=== PATIENT | male | born 1960 | race Caucasian/White ===

== ENCOUNTER → 2016-05-11 | Outpatient (CLI) | payer BC ==
--- NOTE | 2016-05-12 08:50 | XR ---
Left shoulder HISTORY: Left shoulder injury and pain 1 month ago 3 views of the left shoulder No comparisons Left lung apex as visualized is normal. Hypertrophic change present at the acromioclavicular joint. B one mineralization and alignment are maintained. IMPRESSION: No fracture or dislocation. Consider shoulder MRI
== END | disposition home or self-care (01) ==
LOC: RADXRYALE 16:39
PROVIDERS: ATTEND Family Medicine
DX: S49.92XA Unspecified injury of left shoulder and upper arm, initial encounter (principal)

== ENCOUNTER → 2016-08-12 | Outpatient (CLI) | payer BC ==
--- NOTE | 2016-08-12 23:11 | MR ---
EXAMINATION TYPE: MR knee RT wo con DATE OF EXAM: 08/12/2016 9:12 PM COMPARISON: Right knee x-ray February 18, 2016. HISTORY: Knee and Shoulder Pain x4 - 6 months TECHNIQUE: Multiplanar, multisequence images of the knee is performed without IV contrast. FINDINGS: MEDIAL MENISCUS: Anterior horn is intact without tear. Oblique increased signal posterior horn of me dial meniscus on sagittal image 5 and 6 is present, appears to extend to inferior articular surface m ore centrally, findings are consistent with full-thickness meniscal tear. LATERAL MENISCUS: Posterior horn is grossly intact without tear. Some punctate increased signal anter ior horn of lateral meniscus on sagittal image 22 is present. CRUCIATE LIGAMENTS: The anterior and posterior cruciate ligaments are intact. Increased signal near t ibial attachment is seen. COLLATERAL LIGAMENTS: The medial collateral ligament and lateral collateral ligament complex are inta ct. There is medial bulging of the medial collateral ligament complex with surrounding fluid noted. EXTENSOR MECHANISM: Visualized quadriceps and patellar tendons are intact. EFFUSION: There is fairly moderate suprapatellar joint effusion. POPLITEAL CYST: There are small to moderate-sized popliteal/atwood cyst measuring 4.6 cm on long axis on sagittal image 7. TRICOMPARTMENT SPACES: There is fairly moderate joint space loss medial tibiofemoral compartment. Mod erate to severe joint space loss patellofemoral compartment is seen with mild spurring. Tibial condyl ar spurring is present. CARTILAGE: There is marked thinning of articular cartilage medial tibiofemoral compartment. There is some thinning of articular cartilage along posterior patellar pole. No full-thickness chondromalacia patella is present. BONE MARROW SIGNAL: There is heterogeneous increased T2 signal medial tibiofemoral compartment most p ronounced centrally at level of full-thickness cartilaginous loss. There is a prominent diminished T1 signal are noted. No ossific fragmentation is clearly present. OTHER: There is additional fluid collection posterior lateral knee extending from joint space inferio rly near the fibular head possible ganglion cyst. IMPRESSION: 1. Oblique full-thickness tear posterior horn of medial meniscus. 2. Myxoid degeneration ACL. 3. Background of moderate to borderline severe degenerative changes most prominent in patellofemoral and medial tibiofemoral compartments. Medial tibiofemoral compartment shows full-thickness cartilagin ous loss and reactive osseous changes. 4. Moderate-sized suprapatellar joint effusion. 5. Small to moderate-sized popliteal cyst. 6. Intrasubstance tearing anterior horn of lateral meniscus. 7. Moderate MCL sprain.
--- NOTE | 2016-08-12 23:16 | MR ---
EXAMINATION TYPE: MR shoulder LT wo con DATE OF EXAM: 08/12/2016 9:11 PM COMPARISON: Left shoulder x-ray May 11, 2016. HISTORY: Left shoulder pain for 4 months with difficulty raising overhead. TECHNIQUE: Multiplanar, multisequence imaging of the left shoulder is performed without contrast. FINDINGS: Rotator Cuff: There is full-thickness retracted tear of supraspinatus tendon retracted to level of di stal clavicle seen best on paracoronal image 11 roughly 3.6 cm from humeral head attachment. There is at least high-grade partial but suspected full-thickness retracted tear of the infraspinatus tendon as no distinct fibers are seen present past parasagittal image 8 where minimal fibers remain present. Teres minor tendon is intact. There is mild atrophy of supraspinatus and infraspinatus muscl e bulk with muscular replacement. Some edema within the muscular bulk is present on paracoronal image 15. Subscapularis tendon is intact. Acromioclavicular Joint: There is joint space loss with mild irregular spurring at acromioclavicular joint. Distal acromion morphology is unremarkable. Glenohumeral Joint: High riding humeral head is present. There is large glenohumeral joint effusion. Joint space loss is noted. Labrum: The labrum appears grossly intact given limitation of non-arthrogram study. Biceps Tendon: The long head of biceps is in normal location within bicipital groove. Surrounding flu id is believed related to joint effusion. Bone marrow signal: No focal abnormal marrow signal is appreciated. Other: No additional significant abnormality is appreciated. IMPRESSION: 1. Full-thickness retracted tears of supraspinatus and also likely of infraspinatus tendons likely grimm bacute in age which would correlate with patient's history of trauma 4 months ago. There is high ridi ng humeral head with mild muscular atrophy. Some intramuscular edema is noted. 2. Large glenohumeral joint effusion.
== END | disposition home or self-care (01) ==
LOC: RADMRIMAIN 19:56
PROVIDERS: ATTEND Family Medicine
DX: M75.122 Complete rotator cuff tear or rupture of left shoulder, not specified as traumatic (principal); M62.512 Muscle wasting and atrophy, not elsewhere classified, left shoulder; S83.411A Sprain of medial collateral ligament of right knee, initial encounter; S83.281A Other tear of lateral meniscus, current injury, right knee, initial encounter; S83.241A Other tear of medial meniscus, current injury, right knee, initial encounter; M71.21 Synovial cyst of popliteal space [Baker], right knee; M94.8X6 Other specified disorders of cartilage, lower leg; M25.861 Other specified joint disorders, right knee

== ENCOUNTER → 2016-09-21 | Outpatient (CLI) | payer BC ==
--- NOTE | 2016-09-22 13:14 | XR ---
EXAMINATION TYPE: XR chest 2V DATE OF EXAM: 09/21/2016 COMPARISON: NONE HISTORY: Preop, smoker TECHNIQUE: Frontal and lateral views of the chest are obtained. FINDINGS: Lung volumes are low. There is bronchial wall thickening suspected. No pneumonia, pneumoth orax, or pleural effusion. Patient is rotated. Accounting for technique. Cardiomediastinal silhouette , pulmonary vascularity and katie within normal limits. IMPRESSION: Correlate for bronchitis.
== END | disposition home or self-care (01) ==
LOC: RADXRYALE 15:47
PROVIDERS: ATTEND Physician Assistant Medical
DX: Z01.818 Encounter for other preprocedural examination (principal); F17.211 Nicotine dependence, cigarettes, in remission
CPT/HCPCS: 71020

== ENCOUNTER → 2016-09-26 | Outpatient (CLI) | payer BC ==
[2016-09-26 16:49] LABS: Basophils # (A) 0.1 k/uL (0-0.2); Basophils % (A) 1 %; CH 32.6; CHCM 33.5; Eosinophils # (A) 0.2 k/uL (0-0.7); Eosinophils % (A) 3 %; HCT 43.8 % (39.0-53.0); HDW 2.12; HGB 14.6 gm/dL (13.0-17.5); Luc # (Auto) 0.25; Luc % (Auto) 3; Lymphocytes % (A) 26 %; MCH 32.5 pg (25.0-35.0); MCHC 33.3 g/dL (31.0-37.0); MCV 97.6 fL (80.0-100.0); Mean Platelet Volume 7.3; Monocytes # (A) 0.7 k/uL (0-1.0); Monocytes % (A) 9 %; Neutrophils # (A) 4.5 k/uL (1.3-7.7); Neutrophils % (A) 58 %; RBC 4.49 m/uL (4.30-5.90); RDW 13.7 % (11.5-15.5); WBC 7.7 k/uL (3.8-10.6); WBC (Perox) 7.27
[2016-09-26 17:06] LABS: ALT 42 U/L (21-72); AST 26 U/L (17-59); Alkaline Phosphatase 50 U/L (38-126); Anion Gap 10 mmol/L; Blood Urea Nitrogen 16 mg/dL (9-20); Calcium 10.2 mg/dL (8.4-10.2); Carbon Dioxide 25 mmol/L (22-30); Chloride 105 mmol/L (98-107); Glucose 87 mg/dL (74-99); Non-African American GFR(MDRD) >60 (>60 ml/min/1.73 sqM); Potassium 4.8 mmol/L (3.5-5.1); Sodium 140 mmol/L (137-145); Total Protein 7.4 g/dL (6.3-8.2)
[2016-09-29 11:56] LABS: Cotinine <2.0 ng/mL (<2.0); Nicotine <2.0 ng/mL (<2.0)
== END | disposition home or self-care (01) ==
LOC: LABWHC1 16:23
PROVIDERS: ATTEND Orthopaedic Surgery
DX: Z01.818 Encounter for other preprocedural examination (principal); M25.512 Pain in left shoulder; M75.122 Complete rotator cuff tear or rupture of left shoulder, not specified as traumatic; M25.561 Pain in right knee; M23.221 Derangement of posterior horn of medial meniscus due to old tear or injury, right knee; M75.42 Impingement syndrome of left shoulder; M19.012 Primary osteoarthritis, left shoulder; M17.11 Unilateral primary osteoarthritis, right knee; M23.8X1 Other internal derangements of right knee; F17.211 Nicotine dependence, cigarettes, in remission
CPT/HCPCS: 36415; 80053; 80323; 85025

== ENCOUNTER → 2018-08-02 | Outpatient (CLI) | payer BC ==
--- NOTE | 2018-08-03 08:44 | XR ---
EXAM TYPE: LUMBAR SPINE X RAY SERIES COMPARISON: NONE HISTORY: Pain TECHNIQUE: 4 views are submitted. FINDINGS: Alignment is anatomic. The pedicles are intact. The transverse processes are intact. There is no s pondylolysis or spondylolisthesis. Hypertrophic spurring and multilevel degenerative disc disease no meryl with severe changes seen. There is facet arthropathy. Vascular calcifications are noted. IMPRESSION: 1. Multilevel severe degenerative disc disease.
--- NOTE | 2018-08-03 08:49 | XR ---
EXAMINATION TYPE: XR chest 2V DATE OF EXAM: 08/02/2018 COMPARISON: 09/21/2016 TECHNIQUE: PA and lateral views submitted. HISTORY: Cough FINDINGS: The lungs are clear and there is no pneumothorax, pleural effusion, or focal pneumonia. No overt fa ilure. Hypertrophic and degenerative change of the spine. Hyperinflation suggests COPD. IMPRESSION: 1. No acute process.
== END ==
LOC: RADXRYALE 16:10
PROVIDERS: ATTEND Internal Medicine
DX: M51.16 Intervertebral disc disorders with radiculopathy, lumbar region (principal); R05 Cough
CPT/HCPCS: 71046; 72110

== ENCOUNTER → 2019-05-31 | Outpatient (CLI) | payer BC ==
--- NOTE | 2019-06-02 18:56 | MR ---
EXAMINATION TYPE: MR lumbar spine wo con DATE OF EXAM: 05/31/2019 COMPARISON: Plain film 08/02/2018 HISTORY: Jorge hip and thigh pain TECHNIQUE: Multiplanar, multisequence images of the lumbar spine were acquired. L1-L2: Posterior extension endplate disc complex causes mild anterior mass effect on the thecal sac. No significant central stenosis or foraminal encroachment. L2-L3: Posterior extension endplate disc complex causes mild anterior mass effect on the thecal sac. No significant foraminal encroachment or central stenosis. L3-L4: Posterior broad-based disc bulge causes anterior mass effect on the thecal sac. Facet arthropa thy with hypertrophy ligamentum flavum is noted. No significant spinal stenosis. Circumferential exte nsion endplate disc complex encroaches on the neural foramen on the left. L4-L5: There is a posterior disc herniation causing mass effect on the thecal sac, moderate central s tenosis. No evident foraminal encroachment. Minimal anterolisthesis grade 1 at L4-5. L5-S1: Posterior disc herniation a left paracentral location may contact the left S1 nerve root, ante rior thecal sac. Circumferential extension endplate disc complex encroaches on the foramina left grea ter than right. No significant spinal stenosis. Lumbar segments are intact. No paraspinal masses are identified. Conus medullaris has a normal appe arance. Lumbar vertebral bodies show preserved height. There is multilevel loss of disc height signal at intervertebral levels, vacuum phenomenon present L4-5 and L5-S1. Endplate discogenic marrow signa l changes are present. IMPRESSION: Multilevel degenerative disc disease, foraminal encroachment, facet arthropathy, disc herniation with spinal stenosis greatest at L4-5.
== END | disposition home or self-care (01) ==
LOC: RADMRIMAIN 17:41
PROVIDERS: ATTEND Orthopaedic Surgery
DX: M48.061 Spinal stenosis, lumbar region without neurogenic claudication (principal); M51.16 Intervertebral disc disorders with radiculopathy, lumbar region; M46.96 Unspecified inflammatory spondylopathy, lumbar region
CPT/HCPCS: 72148

== ENCOUNTER 2024-10-03 21:45 | Observation (INO) | payer BC ==
[2024-10-03 21:53] LABS: Glucose,Whole Blood 95 mg/dL (70-110)
[2024-10-03 22:19] LABS: Basophils # (A) 0.08 10*3/uL (0.00-0.10); Basophils % (A) 0.5 %; Eosinophils # (A) 0.31 10*3/uL (0.04-0.35); HCT 44.8 % (39.6-50.0); HGB 15.9 g/dL (13.0-17.0); Lymphocytes % (A) 11.7 %; MCH 32.4 pg (27.0-32.0); MCHC 35.5 g/dL (32.0-37.0); MCV 91.4 fL (80.0-97.0); Mean Platelet Volume 10.9 fL (9.5-12.2); Monocytes # (A) 1.42 10*3/uL (0.20-1.00); Monocytes % (A) 9.3 %; Neutrophils # (A) 11.69 10*3/uL (1.80-7.70); Neutrophils % (A) 76.2 %; Platelet Count 342 10*3/uL (140-440); RDW 13.3 % (11.5-14.5); WBC 15.34 10*3/uL (4.50-10.00)
--- NOTE | 2024-10-03 22:30 | CT ---
EXAM: CT Head Without Intravenous Contrast CLINICAL HISTORY: ITS.REASON CT Reason: Neuro deficit, acute, stroke suspected TECHNIQUE: Axial computed tomography images of the head/brain without intravenous contrast. CTDI is 48.9 mGy and DLP is 1151.8 mGy-cm. This CT exam was performed using one or more of the following dose reduction techniques: automated exposure control, adjustment of the mA and/or kV according to patient size, and/or use of iterative reconstruction technique. COMPARISON: None FINDINGS: Diagnostic image quality is reduced by motion artifact. Brain: A small ill-defined focal hypodensity in the genu/anterior limb of the left internal capsule, likely represents an old ischemic injury (series 201 image 32).. There is no acute intracranial hemorrhage, mass-effect or midline shift. The davis-white matter differentiation is maintained. Ventricles: Unremarkable. No ventriculomegaly. Bones/joints: Unremarkable. No acute fracture. Soft tissues: Unremarkable. Sinuses: Right maxillary sinus a 3.0 x 1.9 cm retention cyst. Left maxillary sinus mucosal thickening and a 2.9 x 2.0 cm retention cyst. Medially mucosal thickening of the right sphenoid sinus. No air-fluid levels. Mastoid air cells: Unremarkable as visualized. No mastoid effusion.. IMPRESSION: No conclusive acute intracranial pathology identified. If there is continued clinical concern, MRI brain is recommended. .
[2024-10-03 22:31] LABS: ALT 39 U/L (4-49); African American GFR (CKD) >90 (>60 ml/min/1.73 sqM); Alcohol <10 mg/dL; Anion Gap 11 mmol/L; Blood Urea Nitrogen 16 mg/dL (9-20); Calcium 9.8 mg/dL (8.4-10.2); Carbon Dioxide 20 mmol/L (22-30); Chloride 106 mmol/L (98-107); Creatine Kinase 229 U/L (55-170); Glucose 92 mg/dL (74-99); Non-African American GFR(CKD) >90 (>60 ml/min/1.73 sqM); Sodium 137 mmol/L (137-145); Total Bilirubin 1.4 mg/dL (0.2-1.3); Total Protein 7.7 g/dL (6.3-8.2)
[2024-10-03 22:34] LABS: AST 35 U/L (17-59); Alkaline Phosphatase 51 U/L (38-126); Potassium 4.5 mmol/L (3.5-5.1)
[2024-10-03 22:40] LABS: Prothrombin Time 10.8 sec (10.0-12.5)
[2024-10-03 22:43] LABS: Partial Thromboplastin Time 20.9 sec (22.0-30.0)
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
--- NOTE | 2024-10-03 22:57 | CT ---
EXAM: CT Angiography Head With Intravenous Contrast CLINICAL HISTORY: ITS.REASON CT Reason: Neuro deficit, acute, stroke suspected TECHNIQUE: Axial computed tomographic angiography images of the head with intravenous contrast. CTDI is 13.8 mGy and DLP is 250.6 mGy-cm. This CT exam was performed using one or more of the following dose reduction techniques: automated exposure control, adjustment of the mA and/or kV according to patient size, and/or use of iterative reconstruction technique. MIP reconstructed images were created and reviewed. COMPARISON: CT head: 10/03/2024 FINDINGS: Right internal carotid artery: No acute findings. Intracranial segment is patent with no significant stenosis. No aneurysm. Right anterior cerebral artery: No occlusion or significant stenosis. No aneurysm. Right middle cerebral artery: No occlusion or significant stenosis. No aneurysm. Right posterior cerebral artery: No occlusion or significant stenosis. No aneurysm. Right vertebral artery: Unremarkable as visualized. Left internal carotid artery: No acute findings. Intracranial segment is patent with no significant stenosis. No aneurysm. Left anterior cerebral artery: No occlusion or significant stenosis. No aneurysm. Left middle cerebral artery: No occlusion or significant stenosis. No aneurysm. Left posterior cerebral artery: . No occlusion or significant stenosis. No aneurysm. Left vertebral artery: Unremarkable as visualized. Basilar artery: No occlusion or significant stenosis. No aneurysm. IMPRESSION: CTA nikolski of [place] does not demonstrate any aneurysm, high-grade stenosis or occlusion. . EXAM: CT Angiography Neck With Intravenous Contrast CLINICAL HISTORY: ITS.REASON CT Reason: Neuro deficit, acute, stroke suspected TECHNIQUE: Routine carotid CT angiography protocol was performed with intravenous contrast. NASCET criteria using the distal ICAs for comparison were used for evaluation of stenoses. CTDI is 13.8 mGy and DLP is 250.6 mGy-cm. This CT exam was performed using one or more of the following dose reduction techniques: automated exposure control, adjustment of the mA and/or kV according to patient size, and/or use of iterative reconstruction technique. MIP reconstructed images were created and reviewed. COMPARISON: None. FINDINGS: VASCULATURE: Right common carotid artery: No occlusion or significant stenosis. No dissection. Right carotid bulb: Calcified plaques Right internal carotid artery: Extracranial proximal segment right ICA with calcified plaque, <50% stenosis. No occlusion. No dissection. Right external carotid artery: Proximally calcified atheromatous plaques. No occlusion. Right vertebral artery: No occlusion or significant stenosis. No dissection. Left common carotid artery: No occlusion or significant stenosis. No dissection. Left carotid bulb: Calcified plaques Left internal carotid artery: Proximal extracranial segment calcified atherosclerotic plaques is seen with > 50% stenosis. No occlusion. No dissection. Left external carotid artery: Unremarkable. No occlusion. Left vertebral artery: No occlusion or significant stenosis. No dissection. NECK: Bones/joints: C5-C7 moderately severe degenerative spondylosis. No acute fracture. Soft tissues: Unremarkable. Lung apices: No mass. No consolidation. CAROTID STENOSIS REFERENCE USING NASCET CRITERIA: % ICA stenosis = (1 - narrowest ICA diameter/diameter of distal cervical ICA) x 100. Mild - <50% stenosis. Moderate - 50-69% stenosis. Severe - 70-94% stenosis. Near occlusion - 95-99% stenosis. Occluded - 100% stenosis. IMPRESSION: Atheromatous calcified plaques of the bilateral carotid bulbs and proximal extracranial ICAs with 40-50% stenosis. Otherwise unremarkable CTA neck.
--- NOTE | 2024-10-03 23:44 | XR ---
EXAM: XR Chest, 2 Views CLINICAL HISTORY: ITS.REASON XR Reason: altered mental status TECHNIQUE: Frontal and lateral views of the chest. COMPARISON: X-ray chest: 08/02/2018 FINDINGS: Lungs: Underexpanded lungs. Bilateral bronchial wall thickening. There is right infrahilar focal density along the right cardiac border is seen, likely projectional in nature although a pathology is not ruled out, the need for CT chest exam to be determined clinically.. No consolidation. Pleural space: No pleural effusion. No pneumothorax. A mildly elevated left hemidiaphragm. Heart: Borderline/mild cardiomegaly. Mediastinum: Normal mediastinal contour. Bones/joints: No acute fracture.. IMPRESSION: No conclusive acute cardiopulmonary process. .
[2024-10-04] MEDS: ASPIRIN 325 MG TAB PO STA (00:41)
[2024-10-04] MEDS: ATORVASTATIN 40 MG TAB PO SCH (00:41)
[2024-10-04 06:31] LABS: Appearance,Urine Clear (Clear); Bilirubin,Urine Negative (Negative); Blood,Urine Negative (Negative); Color,Urine Colorless; Glucose,Urine (UA) Negative (Negative); Ketones,Urine Negative (Negative); Leukocyte Esterase,Urine Negative (Negative); Nitrite,Urine Negative (Negative); PH, Urine 5.5 (5.0-8.0); Protein,Urine Negative (Negative); Specific Gravity,Urine 1.044 (1.001-1.035); Urobilinogen,Urine <2.0 mg/dL (<2.0)
[2024-10-04 10:30] LABS: Chol/HDL Ratio 2.49 Ratio; LDL Cholesterol,Calculated 81.5 mg/dL (0.0-131.0); VLDL Calculation 19.58 mg/dL (5.00-40.00)
--- NOTE | 2024-10-04 11:02 | XR ---
EXAMINATION TYPE: XR orbit pre-MRI foreign body DATE OF EXAM: 10/04/2024 10:55 AM COMPARISON: None CLINICAL INDICATION: Male, 63 years old with history of metal in eye pre-MRI; [facility] TECHNIQUE: XR orbit pre-MRI foreign body views the orbits frontal, lateral and Presley. FINDINGS: Radiographic evaluation of the orbits fail to demonstrate evidence of an orbital fracture. There is n o radiopaque foreign body identified. The adjacent paranasal sinuses are well aerated an without evid ence of intra-cavitary fluid accumulation. If a radiographically occult fracture is clinically suspected, thin-section CT scan of the orbits is a more sensitive study to exclude subtle maxillofacial traumatic injuries. IMPRESSION: No radiographic evidence of radiopaque foreign body other than patient's dental work. [facility], , 10/04/2024 11:00 AM
--- NOTE | 2024-10-04 13:02 | P.HPIM ---
History of Present Illness 62-year-old male came in with complaints of temporary lapse of memory as detailed in the ER physician note patient had his memory difficulties which started yesterday evening which lasted until he came to ER and lasted shortly after he came to ER patient denied any focal weakness at this time patient denied any fever chills nausea vomiting headache. Patient denied any cough urinary symptoms patient does have leukocytosis without any evidence of infection on radiological imaging and bilateral biochemical testing. Patient's blood pressure is significantly higher when he came in yesterday which has come down to 160 systolic at this time REVIEW OF SYSTEMS: All other systems are negative except those mentioned in the HPI PHYSICAL EXAMINATION: GENERAL: The patient is alert and oriented x3, not in any acute distress. Well developed, well nourished. HEENT: Pupils are round and equally reacting to light. EOMI. No scleral icterus. No conjunctival pallor. Normocephalic, atraumatic. No pharyngeal erythema. No thyromegaly. CARDIOVASCULAR: S1 and S2 present. No murmurs, rubs, or gallops. PULMONARY: Chest is clear to auscultation, no wheezing or crackles. ABDOMEN: Soft, nontender, nondistended, normoactive bowel sounds. No palpable organomegaly. MUSCULOSKELETAL: No joint swelling or deformity. EXTREMITIES: No cyanosis, clubbing, or pedal edema. NEUROLOGICAL: Gross neurological examination did not reveal any focal deficits. SKIN: No rashes. Assessment and plan Transient global amnesia patient need to be worked up for stroke patient had a CT of the head and CT angio of the head CT angiogram of the head showed some bilateral atheromatous plaques. No other significant stenosis. Neurology will evaluate the patient -Possible essential hypertension for now we will just monitor the blood pressure without any antimedicine medications considering that patient need to be worked up for TIA/stroke - Hyperlipidemia for which patient is on statin - Continue nicotine use: Counseling will be provided DVT prophylaxis:-Early ambulation Past Medical History Past Medical History: Hyperlipidemia, Hypertension History of Any Multi-Drug Resistant Organisms: None Reported Past Surgical History: Joint Replacement Additional Past Surgical History / Comment(s): Right knee replacement Smoking Status: Current every day smoker Past Alcohol Use History: Daily Past Drug Use History: None Reported Medications and Allergies Home Medications Medication Instructions Recorded Confirmed Type Rosuvastatin Calcium 5 mg PO HS 10/04/24 10/04/24 History Allergies Allergy/AdvReac Type Severity Reaction Status Date / Time No Known Allergies Allergy Verified 10/04/24 08:28 Physical Exam Vitals: Vital Signs Temp Pulse Pulse Resp BP BP Pulse Ox 10/04/24 12:30 70 16 137/91 95 10/04/24 10:05 60 16 142/85 97 10/04/24 09:14 98.1 F 79 16 161/114 96 10/04/24 03:00 98.1 F 82 16 130/78 94 L 10/04/24 01:58 79 18 120/83 97 10/04/24 00:41 70 18 128/87 100 10/03/24 22:17 95 18 168/100 94 L 10/03/24 21:48 97.7 F 103 H 18 200/130 95 Intake and Output 10/03/24 10/04/24 10/04/24 22:59 06:59 14:59 Output Total 500 Balance -500 Output: Urine 500 Other: Weight 79.832 kg Results CBC & Chem 7: 10/03/24 21:50 10/03/24 21:50 Labs: Abnormal Lab Results - Last 24 Hours (Table) 10/03/24 10/03/24 10/03/24 Range/Units 21:50 21:50 21:50 WBC 15.34 H (4.50-10.00) 10*3/uL MCH 32.4 H (27.0-32.0) pg Neutrophils # 11.69 H (1.80-7.70) 10*3/uL Monocytes # 1.42 H (0.20-1.00) 10*3/uL APTT 20.9 L (22.0-30.0) sec Carbon Dioxide 20 L (22-30) mmol/L Total Bilirubin 1.4 H (0.2-1.3) mg/dL Creatine Kinase 229 H (55-170) U/L HDL Cholesterol (40.00-60.00) mg/dL Ur Specific [place] (1.001-1.035) 10/04/24 10/04/24 Range/Units 06:05 06:14 WBC (4.50-10.00) 10*3/uL MCH (27.0-32.0) pg Neutrophils # (1.80-7.70) 10*3/uL Monocytes # (0.20-1.00) 10*3/uL APTT (22.0-30.0) sec Carbon Dioxide (22-30) mmol/L Total Bilirubin (0.2-1.3) mg/dL Creatine Kinase (55-170) U/L HDL Cholesterol 67.90 H (40.00-60.00) mg/dL Ur Specific [place] 1.044 H (1.001-1.035)
[2024-10-04] MEDS: ASPIRIN 81 MG PO SCH (13:32)
--- NOTE | 2024-10-04 15:15 | MR ---
EXAMINATION TYPE: MR brain/cspine wo DATE OF EXAM: 10/04/2024 3:00 PM COMPARISON: 10/03/2024. CLINICAL INDICATION: Male, 63 years old with history of global amnesia, global amnesia, spasticity, w eakness of hands, spinal stenosis. TECHNIQUE: Multi planar, multi sequence imaging was performed through the brain including: T1, T2, Inversion rec overy, Diffusion weighted imaging, and gradient echo imaging. No gadolinium was given. Multi planar, multi sequence imaging was performed utilizing: T1-weighted, T2-weighted, and turbo inv ersion recovery imaging of the cervical spine. IV Contrast: mL none FINDINGS: The davis-white junctions, ventricular system, basal cisterns appear unremarkable. Scattered foci of high T2 signal intensity are seen within the periventricular white matter. Midline structures show n o abnormality. Diffusion-weighted imaging shows no evidence of restricted diffusion. The susceptibili ty weighted images do not reveal any evidence for micro-hemorrhage. The bone marrow signal is within normal limits. Paranasal sinuses and mastoid air cells: Mucosal thickening with retention cysts in the maxillary sin uses. The 37 mm on the right and 25 mm on the left. Visualized orbits: Orbital contents are intact. Alignment: The cervical vertebral bodies have preserved heights. Alignment is within normal limits gi allyn patient positioning. Bones: Scattered Modic endplate changes with osteophytes and disc space narrowing. Multilevel degener ative disc disease is noted and most pronounced at the C5-C7 vertebral levels. Cord: The spinal cord is unremarkable with regards to their signal intensity and morphology. Discs: Intervertebral disc signal is maintained. C2-C3: No significant disc pathology. The spinal canal is patent. No neural foraminal stenosis. C3-C4: No significant disc pathology. The spinal canal is patent. Bilateral facet and uncovertebral joint arthropathy are present with mild bilateral neural foraminal stenosis. C4-C5: A disc osteophyte complex is present with moderate to severe spinal canal stenosis. Bilateral facet and uncovertebral joint arthropathy are present with moderate to severe bilateral neural bon inal stenosis. C5-C6: A disc osteophyte complex is present with moderate to severe spinal canal stenosis. Bilateral facet and uncovertebral joint arthropathy are present with moderate to severe bilateral neural bon inal stenosis. C6-C7: No significant disc pathology. The spinal canal is patent. No neural foraminal stenosis. C7-T1: No significant disc pathology. The spinal canal is patent. No neural foraminal stenosis. Other: None. IMPRESSION: 1. Moderate to severe spinal canal stenosis at C5 or C5 and C5-C6 with moderate to severe bilateral neural foraminal stenosis at these levels. 2. No evidence of intracranial mass or acute/subacute infarct. 3. Nonspecific white matter changes, likely secondary to small vessel ischemic disease. [facility], , 10/04/2024 3:12 PM
--- NOTE | 2024-10-04 16:04 | P.CNNES ---
History of Present Illness Consult date: 10/04/24 Requesting physician: Vannessa Bradford Reason for Consult: global amnesia History of Present Illness: Patient is a 63-year-old male, who was brought to the hospital by ambulance at 9:45 PM last night for acute onset of amnesia. Patient states that he just got a new motorcycle. He wanted to park the motorcycle in the garage. Between driveway to the garage, there is an 4 inch lip. He remembers that he lifted the front of the motorcycle to bring it over to the garage, but it was too heavy. It started tipping over. He tried to hold it, but it was too heavy. He let it go on the ground. He then tried multiple attempts to lift it back up and took 3 trials. At that time, his son called at around 8:20 PM that why his motorcycle was in the shed. Patient did not remember why it was there and he was disoriented. He asked if he was okay, but patient could not answer. Patient's son asked if he remembers helping him and out on his deck about couple weeks ago and patient could not remember that. He got concerned and called patient's sister, who came over and that the time he was not making too much sense. His also got home and they called EMS at 8:49 PM. At that time he was looking around, confused, could not remember to even 1 minute to think to answer. There was no facial droop, slurred speech, visual disturbance, focal weakness numbness or tingling. He was complaining of some soreness in the right elbow from lifting the motorcycle. Patient's vitals at the scene was blood pressure 186/115, pulse rate 106, respiration 15 saturation 96%, blood sugar 88. Repeat blood pressure was 192/124. Vital signs on arrival was blood pressure 200/130, which came down to 168/100. Temperature is 97.7, pulse rate 103. Blood test shows WBC 15.34, hemoglobin 15.9, platelets are normal. PT PTT normal. CMP normal. CK2 29. Troponin negative. UA negative. Blood alcohol level less than 10. EKG shows sinus rhythm. CT head revealed no conclusive acute intracranial pathology identified. I personally reviewed CT head, agree with the findings. On my review, there is slight density in the left M2 segment in the sylvian fissure. Chest x-ray showed no conclusive acute cardiopulmonary disease. Patient states that the family left at around 1230 midnight and at that time he was memory was getting better. At present he feels back to baseline. Patient has history of hypertension but not being treated. No history of strokes or TIA. No history of seizures. He smokes 1 pack/day for last 40 years. Also drinks 3-4 beers every night for last 20 years. He has hyperlipi demia on Crestor 5 mg daily, otherwise no other medication. Does not take any antiplatelets. Review of Systems All pertinent positive and negative review of systems mentioned in the HPI, otherwise unremarkable. Past Medical History Past Medical History: Hyperlipidemia, Hypertension History of Any Multi-Drug Resistant Organisms: None Reported Past Surgical History: Joint Replacement Additional Past Surgical History / Comment(s): Right knee replacement Smoking Status: Current every day smoker Past Alcohol Use History: Daily Past Drug Use History: None Reported Medications and Allergies Home Medications Medication Instructions Recorded Confirmed Type Rosuvastatin Calcium 5 mg PO HS 10/04/24 10/04/24 History Allergies Allergy/AdvReac Type Severity Reaction Status Date / Time No Known Allergies Allergy Verified 10/04/24 08:28 Physical Examination - Vital Signs Vital Signs: Vital Signs Temp Pulse Pulse Resp BP BP Pulse Ox 10/04/24 12:30 70 16 137/91 95 10/04/24 10:05 60 16 142/85 97 10/04/24 09:14 98.1 F 79 16 161/114 96 10/04/24 03:00 98.1 F 82 16 130/78 94 L 10/04/24 01:58 79 18 120/83 97 10/04/24 00:41 70 18 128/87 100 10/03/24 22:17 95 18 168/100 94 L 10/03/24 21:48 97.7 F 103 H 18 200/130 95 Intake and Output 10/03/24 10/04/24 10/04/24 22:59 06:59 14:59 Output Total 500 Balance -500 Output: Urine 500 Other: Weight 79.832 kg Patient is a late middle-aged male, very pleasant, in no acute distress. Patient is alert awake oriented to time place and person. He knows it is 10/04/2024 and that it is Monday and that he is in [facility], in [facility]. Speech and language functions are normal. Patient can name and repeat very well. No aphasia or dysarthria. Attention, concentration and fund of knowledge is adequate. On cranial nerve examination, pupils are equal, round and reacting to light, visual conteh are full on confrontation, with no neglect on double simultaneous stimulation. Extraocular muscles are intact with no nystagmus. Face is symmetric, tongue protrudes to the midline. Palatal elevation and sensation normal, hearing and shoulder shrug normal, facial sensation normal. No evidence of tongue bite anayeli. On muscle strength testing, there is no pronator drift and the strength is normal in arms and legs distally and proximally, except interossei, which is 5- 4+ on the right, 5-on the left. Deep tendon reflexes are symmetric but very brisk, 2 at the biceps, 2+ brachioradialis, 3+ at the knees, 2+ ankles and plantars are upgoing bilaterally. Sensory to touch is equal with no neglect on double simultaneous stimulation. Cerebellar function showed no ataxia for [id number] testing. No dys diadochokinesia. No ataxia for [id number] testing on either side. Tone and bulk of muscles normal. Gait deferred.. On general examination, there is no carotid bruit or murmur, S1-S2 audible. Ch est is clear on consultation. Abdomen is soft nontender. No organomegaly, bowel sounds present. Peripheral pulses are present. No peripheral edema. Results - Laboratory Findings CBC and BMP: 10/03/24 21:50 10/03/24 21:50 Abnormal Lab Findings: Abnormal Labs 10/03/24 10/03/24 10/03/24 21:50 21:50 21:50 WBC 15.34 H MCH 32.4 H Neutrophils # 11.69 H Monocytes # 1.42 H APTT 20.9 L Carbon Dioxide 20 L Total Bilirubin 1.4 H Creatine Kinase 229 H HDL Cholesterol Ur Specific [place] 10/04/24 10/04/24 06:05 06:14 WBC MCH Neutrophils # Monocytes # APTT Carbon Dioxide Total Bilirubin Creatine Kinase HDL Cholesterol 67.90 H Ur Specific [place] 1.044 H Assessment and Plan Assessment: * Acute onset of amnesia, possible transient global amnesia. Rule out TIA/CVA, focal seizure. Rule out hypertensive encephalopathy. * Accelerated hypertension * Weakness of intrinsic hand muscles bilaterally, with brisk reflexes and bilateral Babinski. Suspect cervical myelopathy. Rule out cervical spinal stenosis. * Hyperlipidemia * Tobacco use * Alcohol use Plan: MRI of the brain without contrast, evaluate for acute CVA MRI of the cervical spine rule out spinal stenosis. 2-D echo with bubble study to rule out PFO CTA neck showed: Atheromatous calcified plaque of the bilateral carotid bulbs and proximal extracranial ICAs with 40 to 50% stenosis. CTA head showed no aneurysm or high-grade stenosis or occlusion. EEG, rule out epileptiform activity. Fasting a.m. lipid panel with cholesterol 169, LDL 81, HDL 67 and triglycerides 169. Continue Crestor, would suggest increasing to 10 mg daily at discharge. Hemoglobin A1c 5.7 Optimize control of blood pressure. Start aspirin regimen. Patient was given aspirin 325 mg in the ER last night. We will start aspirin 81 mg daily. Neuro checks every 4 hours. Telemetry monitoring rule out any arrhythmia Recommend complete tobacco cessation. Recommend abstaining from alcoholism. DVT prophylaxis: Patient low risk. Patient is ambulatory. Dr. Fregoso to cover neurology service over the weekend. Thank you for the consult. Time with Patient: Greater than 30
--- NOTE | 2024-10-04 16:33 | EEG ---
DATE OF SERVICE: 10/04/2024 ELECTROENCEPHALOGRAM REPORT PREAMBLE: This is a 63-year-old male with transient global amnesia. The patient does have history of hypertension and hyperlipidemia. EEG FINDINGS: This is a 21-channel digital EEG recorded with video component, utilizing 10/20 international system with referential and bipolar montages. Background consists of well developed, well regulated, high amplitude activity in 11 hertz alpha. Background is posterior dominant and reactive to eye opening and closing. Photic driving response was not seen. The patient so became drowsy with appearance of bilaterally symmetric theta frequency rhythm. Stage 2 sleep was seen during most of the study with presence of sleep spindles and vertex waves and generalized slowing. No focal or generalized epileptiform activity was seen. Hyperventilation was not done. IMPRESSION: This is a normal EEG during wakefulness, drowsiness, and stage 2 sleep. No focal, lateralized or epileptiform activity was seen. MMODL / IJN: [id number] / [id number]
[2024-10-05 07:26] VITALS: BP 126/74; PULSE 66; RESP 15; TEMP 98.1
[2024-10-05] MEDS ORDERED: amLODIPine 5 MG TAB PO SCH (09:00)
--- NOTE | 2024-10-05 10:23 | P.CNOR ---
History of Present Illness - HPI Consult date: 10/05/24 Consult reason: other (Regarding cervical spinal stenosis) History of present illness: Very pleasant 63-year-old male who is accompanied by his at bedside. Seen and examined at bedside. Patient presented to the hospital 2 days ago for global amnesia. He was found to have evidence of significant cervical spinal stenosis and we were consulted in this regard. Apparently the patient was at home and doing normal activities include motorcycle into a shed where he had to try to lift it a few times. He saw his son and was noted to have some obvious changes in his mentation and his memory and then presented to the hospital with his family. He is found to have global amnesia has been evaluated by medicine and neurology appropriately. He is having further workup into regards to possible transient global amnesia and other neurologic cause. During his workup he was found to have evidence of severe cervical spinal stenosis and we are consulted in this regard. As for pain in his upper extremities. He denies any loss of strength in his upper extremities. He denies any regular neck pain. He says he has history of spinal stenosis at his lumbar spine and has some chronic low back pain but this did not been an acute changing matter for him recently. Patient denies any specific injury with his neck. He denies any changes in his neck. Denies any changes in his fine motor skills at his upper extremities. He denies any changes to gait. Denies any clumsiness. Review of Systems Stated per HPI. He has new acute transient amnesia seems to be improving No history of neck injury specifically. No history of issues in his upper extremities. Denies any numbness tingling in his bilateral upper extremities. Denies any dexterity or fine manipulation. Denies Past Medical History Past Medical History: Hyperlipidemia, Hypertension Additional Past Medical History / Comment(s): P of lumbar spinal stenosis had some chronic low grade back pain History of Any Multi-Drug Resistant Organisms: None Reported Past Surgical History: Joint Replacement Additional Past Surgical History / Comment(s): Right knee replacement Past Anesthesia/Blood Transfusion Reactions: No Reported Reaction Smoking Status: Current every day smoker Past Alcohol Use History: Daily Past Drug Use History: None Reported Medications and Allergies Home Medications Medication Instructions Recorded Confirmed Type Rosuvastatin Calcium 5 mg PO HS 10/04/24 10/04/24 History Allergies Allergy/AdvReac Type Severity Reaction Status Date / Time No Known Allergies Allergy Verified 10/04/24 08:28 Physical Examination Osteopathic Statement: *. No significant issues noted on an osteopathic structural exam other than those noted in the History and Physical/Consult. - C Spine: dermatomal strength & reflexes bilateral Shoulder strength: flexion: 5/5 (5 out of 5 muscle strength throughout his biceps shoulders triceps wrist hands and fingers.) Shoulder strength: extension: 5/5 (No hyperreflexia. Some brisk reflexes. Negative Celine's. Extremities have 5-5 muscle strength throughout) Shoulder strength: abduction: 5/5 (Neck is nontender to palpation range of motion. Negative Spurling's) Results - Labs Labs: Abnormal Lab Results - Last 24 Hours (Table) 10/04/24 Range/Units 06:14 HDL Cholesterol 67.90 H (40.00-60.00) mg/dL H & H 10/03/24 Range/Units 21:50 Hgb 15.9 (13.0-17.0) g/dL Hct 44.8 (39.6-50.0) % Coagulation 10/03/24 Range/Units 21:50 INR 1.0 (<1.2) Result Diagrams: 10/03/24 21:50 10/03/24 21:50 - Diagnostic results Cervical MRI with/without contrast: report reviewed (Transient change at the spinal cord. No evidence of myelomalacia. Significant stenosis C5-6 C6-7), image reviewed (Imaging and report of the cervical spine is reviewed. There is significant disc degeneration particular at C5-6 C6-7. There is large disc protrusion and evidence of central and bilateral cyst at C5-6 and C6-7. There is some disc bulging with minimal stenosis at C3-4. 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 He is continue management as per medicine and neurology which I think is appropriate In terms of the patient's cervical spine he has evidence of severe central and bilateral foraminal stenosis at C5-6 C6-7. He does not appear myelopathic. He has good strength in his bilateral upper extremities without focal upper or lower extremity neurologic deficit. Symptoms at his upper or lower extremities in terms of radiculopathy or myelopathy. His spine findings are significant and will need follow-up with us. Surgical intervention or further imaging for his cervical spine during this hospitalization. I do not think that his cervical spine has any specific correlation with his recent memory issues. he is working on his amnestic issues with neurology and medicine appropriately. In the future he could be a candidate for further intervention for his cervical spine likely in the form of decompression with potential fusion. This does not have to be done urgently or emergently and he can follow-up with us at orthopedics spine as an outpatient after discharge. Discussed this at length with him and his and they seem to understand. Time with Patient: Greater than 30
--- NOTE | 2024-10-05 12:36 | P.PN ---
Subjective Progress Note Date: 10/05/24 The patient is a 63-year-old male who was seen in neurologic follow-up on October 05, 2024, in collaboration with Becky Singh, via teleneurology. The patient's chart has been reviewed. Imaging has been reviewed. The patient reportedly had an episode of memory loss. Because of reported arm pain and stiffness as well as hyperreflexia, the patient had an MRI of the brain and MRI of the cervical spine performed. MRI of the cervical spine revealed moderate to severe spinal canal stenosis as well as moderate to severe neuroforaminal stenosis. Because of these findings, orthopedic surgery was asked to evaluate the patient. Objective - Vital Signs Vital signs: Vital Signs Temp 98.1 F 10/05/24 07:00 Pulse 66 10/05/24 07:00 Resp 15 10/05/24 07:00 BP 126/74 10/05/24 07:00 Pulse Ox 98 10/05/24 07:00 FiO2 Intake & Output 10/04/24 10/05/24 10/05/24 18:59 06:59 18:59 Weight 79.832 kg Other: Voiding Method Toilet # Voids 2 - Exam General: The patient is reclining in the bed. He is well-nourished, well- developed and in no acute distress. HEENT: Head is atraumatic, normocephalic. Fundus not visualized. There is no scleral icterus. Mucous membranes are moist. Neurological examination Mental status: The patient is awake, alert and oriented x 3. His speech is clear. There is no dysarthria or aphasia. Cranial nerves: 2-12 grossly intact - Labs CBC & Chem 7: 10/03/24 21:50 10/03/24 21:50 Labs: Abnormal Lab Results - Last 24 Hours (Table) 10/04/24 Range/Units 06:14 HDL Cholesterol 67.90 H (40.00-60.00) mg/dL Assessment and Plan Assessment: * Acute onset of amnesia, possible transient global amnesia. Rule out TIA/CVA, focal seizure. Rule out hypertensive encephalopathy. * Accelerated hypertension * Weakness of intrinsic hand muscles bilaterally, with brisk reflexes and bilateral Babinski. Suspect cervical myelopathy. Rule out cervical spinal stenosis. * Hyperlipidemia * Tobacco use * Alcohol use Plan: 1. Appreciate orthopedic surgery evaluation 2. Optimize control of blood pressure. 3. Start aspirin regimen. Patient was given aspirin 325 mg in the ER last night. We will start aspirin 81 mg daily. 4. Recommend complete tobacco cessation. Recommend abstaining from alcoholism. 5. The patient is neurologically stable for discharge Time with Patient: Greater than 30 (35 minutes were spent caring for this pat ient today including, obtaining an interim history, examining the patient, reviewing imaging, chart documentation, labs, placing orders and creating this note)
--- NOTE | 2024-10-05 13:14 | CA ---
Transthoracic Echo Report Name: Isaac Sanchez Age: 63 Gender: M : 1960 Exam Date: 10/05/2024 09:06 Exam Location: [place] [facility] Ht (in): 66 Wt (lb): 176 Ordering Physician: Raghu Parker MD Attending/Referring Phys: Master Electrician Vincent Feldman RDCS Procedure CPT: Indications: TGA Cardiac Hx: TIA rule out cardiac source Technical Quality: Good Contrast 1: Agitated Saline Total Dose (mL): 10 Contrast 2: Total Dose (mL): MEASUREMENTS (Male / Female) Normal Values 2D ECHO LV Diastolic Diameter PLAX 5.4 cm 4.2 - 5.9 / 3.9 - 5.3 cm LV Systolic Diameter PLAX 3.3 cm IVS Diastolic Thickness 1.0 cm 0.6 - 1.0 / 0.6 - 0.9 cm LVPW Diastolic Thickness 1.0 cm 0.6 - 1.0 / 0.6 - 0.9 cm LV Relative Wall Thickness 0.4 RV Internal Dim ED PLAX 3.6 cm LVOT Diameter 1.9 cm LA Systolic Diameter LX 4.1 cm 3.0 - 4.0 / 2.7 - 3.8 cm LV Diastolic Volume MOD BP 122.2 cm??? 67 - 155 / 56 - 104 cm??? LV Systolic Volume MOD BP 53.9 cm??? 22 - 58 / 19 - 49 cm??? LV Ejection Fraction MOD BP 55.9 % >= 55 % LV Cardiac Index MOD BP 2561.4 cm???/min???m??? LV Diastolic Volume MOD 4C 125.9 cm??? LV Systolic Volume MOD 4C 60.0 cm??? LV Ejection Fraction MOD 4C 52.3 % LV Cardiac Index MOD 4C 2468.7 cm???/min???m??? LV Diastolic Length 4C 8.6 cm LV Systolic Length 4C 7.2 cm LV Diastolic Volume MOD 2C 116.3 cm??? LV Systolic Volume MOD 2C 47.2 cm??? LV Ejection Fraction MOD 2C 59.5 % LV Cardiac Index MOD 2C 2591.2 cm???/min???m??? LV Diastolic Length 2C 8.8 cm LV Systolic Length 2C 7.4 cm LA Volume 56.8 cm??? 18 - 58 / 22 - 52 cm??? LA Volume Index 29.2 cm???/m??? 16 - 28 cm???/m??? DOPPLER MV Area PHT 3.2 cm??? Mitral E Point Velocity 59.5 cm/s Mitral A Point Velocity 67.1 cm/s Mitral E to A Ratio 0.9 MV Deceleration Time 237.4 ms TR Peak Velocity 236.8 cm/s TR Peak Gradient 22.4 mmHg Right Atrial Pressure 5.0 mmHg Pulmonary Artery Systolic Pressu 27.4 mmHg Right Ventricular Systolic Press 27.4 mmHg FINDINGS Left Ventricle Left ventricular ejection fraction is estimated at 55-60%. No obvious regional wall motion abnormalities. Left ventricular dilatation. Left ventricular wall thickness normal. Right Ventricle Normal right ventricular size and function. Right ventricular systolic pressure within normal limits. Right Atrium Normal right atrial size. Negative agitated saline bubble study for right to left shunt. Left Atrium Mildly increased left atrial diameter. Mildly increased left atrial volume. Mitral Valve Structurally normal mitral valve. No mitral stenosis. Trace mitral regurgitation. Aortic Valve Trileaflet aortic valve. Thickened aortic valve without stenosis. Trace aortic regurgitation. Tricuspid Valve Structurally normal tricuspid valve. No tricuspid stenosis. Mild tricuspid regurgitation. Pulmonic Valve Structurally normal pulmonic valve. No pulmonic stenosis. No pulmonic regurgitation. Pericardium No pericardial effusion. Aorta Normal size aortic root and proximal ascending aorta. CONCLUSIONS Normal LV function Negative agitated saline contrast study Consider ANGELO if clinically indicated Previewed by: Dr. Alexi Ryan MD (Electronically Signed) Final Date: 05 October 2024 13:13
--- NOTE | 2024-10-05 16:06 | P.DS ---
Providers Date of admission: 10/03/24 23:46 Attending physician: Armando Carbajal Consults: 10/03/24 23:45 Consult Physician Urgent Consulting Provider: Raghu Parker Consult Reason/Comments: global amnesia Do you want consulting provider notified?: Yes 10/04/24 16:32 Consult Physician Routine Consulting Provider: Elisabeth Abbott Consult Reason/Comments: Severe cervical spinal stenosis with myelopathy Do you want consulting provider notified?: Yes Primary care physician: [facility] Course: 62-year-old male came in with complaints of temporary lapse of memory as detailed in the ER physician note patient had his memory difficulties which started yesterday evening which lasted until he came to ER and lasted shortly after he came to ER patient denied any focal weakness at this time patient denied any fever chills nausea vomiting headache. Patient denied any cough urinary symptoms patient does have leukocytosis without any evidence of infection on radiological imaging and bilateral biochemical testing. Patient's blood pressure is significantly higher when he came in yesterday which has come down to 160 systolic at this time 10/05/2024 Patient had an MRI which did not show any stroke may still have a TIA that led to his transient global amnesia. Considering physical exam findings of hyperreflexia in bilateral lower extremities neurology obtained an MRI of the cervical spine which showed cervical degenerative disc disease. Patient was evaluated by orthopedic surgery because of that reason but patient does not have any other symptoms of myelopathy. Patient does not have any pain at all because of which have not giving him any pain medications or anti-inflammatory medications patient was recommended to follow-up with Dr. Reed as an outpatient. Patient's blood pressure is within normal limits today will not require any other antihypertensive medications patient had normal physiologic elevations yesterday or may be related to his TIA. PHYSICAL EXAMINATION: GENERAL: The patient is alert and oriented x3, not in any acute distress. Well developed, well nourished. HEENT: Pupils are round and equally reacting to light. EOMI. No scleral icterus. No conjunctival pallor. Normocephalic, atraumatic. No pharyngeal erythema. No thyromegaly. CARDIOVASCULAR: S1 and S2 present. No murmurs, rubs, or gallops. PULMONARY: Chest is clear to auscultation, no wheezing or crackles. ABDOMEN: Soft, nontender, nondistended, normoactive bowel sounds. No palpable organomegaly. MUSCULOSKELETAL: No joint swelling or deformity. EXTREMITIES: No cyanosis, clubbing, or pedal edema. NEUROLOGICAL: Gross neurological examination did not reveal any focal deficits. SKIN: No rashes. Assessment and plan Transient global amnesia patient need to be worked up for stroke patient had a CT of the head and CT angio of the head CT angiogram of the head showed some bilateral atheromatous plaques. No other significant stenosis. Neurology evaluated the patient patient had MRI of the brain which did not show stroke. Patient is already on statin is being discharged on baby aspirin - Cervical spinal stenosis C5-6, C6-7 without any upper extremity weakness. 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 for these patient will follow-up with spinal surgeon as an outpatient -Ruled out essential hypertension patient does not have elevated blood pressures today did not require any antihypertensive medications - Hyperlipidemia for which patient is on statin - Continue nicotine use: Counseling was provided Patient Condition at Discharge: Stable Plan - Discharge Summary Discharge Rx Participant: No New Discharge Prescriptions: New Aspirin 81 mg PO DAILY #30 tab No Action Rosuvastatin Calcium 5 mg PO HS Discharge Medication List Rosuvastatin Calcium 5 mg PO HS 10/04/24 [History] Aspirin 81 mg PO DAILY #30 tab 10/05/24 [Rx] Follow up Appointment(s)/Referral(s): Elisabeth Abbott DO [Doctor of Osteopathic Medicine] - 3 Weeks (Cervical spinal stenosis) Jennifer Lopez MD [Primary Care Provider] - 1-2 days Discharge Disposition: HOME SELF-CARE
== END 2024-10-05 14:11 | disposition home or self-care (01) ==
LOC: EC 21:45 → 6NMEDSUR 23:46
PROVIDERS: ADMIT Hospitalist; ATTEND Hospitalist
DX: G45.4 Transient global amnesia (principal); M48.02 Spinal stenosis, cervical region; M48.061 Spinal stenosis, lumbar region without neurogenic claudication; M50.322 Other cervical disc degeneration at C5-C6 level; I67.2 Cerebral atherosclerosis; I10 Essential (primary) hypertension; G89.29 Other chronic pain; E78.5 Hyperlipidemia, unspecified; D72.829 Elevated white blood cell count, unspecified; F10.90 Alcohol use, unspecified, uncomplicated; Y90.0 Blood alcohol level of less than 20 mg/100 ml; F17.210 Nicotine dependence, cigarettes, uncomplicated; Z79.899 Other long term (current) drug therapy; Z71.6 Tobacco abuse counseling
CPT/HCPCS: 99285; 36415; 95816; 93005; 93306; 80061; 80053; 82607; 82550; 82746; 84484; 85025; 85610; 85730; 81003; 80320; 83036; 70030; 71046; 70496; 70450; 70498; 70551; 72141; G0378 ×2; Q9967